=== PATIENT | female | born 1990 | race Caucasian/White ===

== ENCOUNTER 2017-05-05 08:18 | Emergency (ER) | payer SELFPAY ==
[2017-05-05 08:19] VITALS: BP 131/84; PULSE 94; RESP 17; TEMP 97.9; O2SAT 100
[2017-05-05] MEDS ORDERED: IBUPROFEN 800 MG TAB PO ONE (08:45)
[2017-05-05] MEDS ORDERED: IBUP800T23 PO (08:47)
[2017-05-05] MEDS ORDERED: ROBA500T PO (08:48)
--- NOTE | 2017-05-05 08:48 | PD ---
HPI Chief Complaint: Injury Time Seen by Provider: 08:43 Travel History International Travel<30 days: No Contact w/Intl Traveler<30days: No Traveled to known affect area: No History of Present Illness HPI 27-year-old female presents to the emergency Department with complaint of right lower frontal rib cage pain since April 30 after falling onto the sand. Change to tire and lifted a heavy box yesterday with re-exacerbation of the pain. Denies hemoptysis, fever, vomiting. Pain is worse with movement, deep breathing and palpation. Has been taking ibuprofen for symptom management. Allergies to sulfa. Has no other medical complaints. No other modifying factors or associated signs and symptoms. PFSH Past Medical History Cancer: No Cardiovascular Problems: No Diabetes: No Diminished Hearing: No Endocrine: No Genitourinary: No Hepatitis: No Hiatal Hernia: No Immune Disorder: No Musculoskeletal: No Neurologic: No Psychiatric: No Reproductive: No Respiratory: No Thyroid Disease: No ?: Not : 3 Miscarriage: 1 : 2 Dilation and Curettage (D&C): Yes (04/16/14) Past Surgical History Abdominal Surgery: No AICD: No Body Medical Devices: hardware right index finger Cardiac Surgery: No Ear Surgery: No Endocrine Surgery: No Eye Surgery: No Genitourinary Surgery: No Gynecologic Surgery: Yes (D & C ) Joint Replacement: No Oral Surgery: Yes (WISDOM TEETH EXTRACTED) Pacemaker: No Thoracic Surgery: No Other Surgery: Yes (WISDOM TEETH REMOVAL) Social History Alcohol Use: Yes (SOCIALLY) Tobacco Use: Yes (OCCASIONALLY) Substance Use: Yes (MARIJUANA OCCASIONALLY) Allergies-Medications (Allergen,Severity, Reaction): Coded Allergies: Sulfa (Verified Allergy, Severe, 03/15/15) rash Reported Meds & Prescriptions Reported Meds & Active Scripts Active Robaxin (Methocarbamol) 500 Mg Tab 500 Mg PO QID PRN Ibuprofen 800 Mg Tab 800 Mg PO Q6HR PRN Review of Systems Except as stated in HPI: all other systems reviewed are Neg Physical Exam Narrative GENERAL: Well-nourished, well-developed female patient, in no acute distress SKIN: Warm and dry. HEAD: Atraumatic. Normocephalic. EYES: Pupils equal and round. No scleral icterus. No injection or drainage. ENT: Mucosa pink and moist. NECK: Trachea midline. CHEST: Reproducible tenderness to the right lower frontal rib cage just below the right breast; no crepitance or deformity; without ecchymosis, erythema, edema. No retractions or use of accessory muscles. CARDIOVASCULAR: Regular rate and rhythm. No murmur appreciated. RESPIRATORY: No accessory muscle use. Clear to auscultation. Breath sounds equal bilaterally. No retractions or tachypnea. GASTROINTESTINAL: Abdomen soft, non-tender, nondistended. Hepatic and splenic margins not palpable. Bowel sounds are active 4 quadrants. MUSCULOSKELETAL: No obvious deformities. No clubbing. No cyanosis. No edema. NEUROLOGICAL: Awake and alert. Oriented 3. No obvious cranial nerve deficits. Motor grossly within normal limits. Normal speech. Moves all extremities. 5/5 strength to all extremities. PSYCHIATRIC: Appropriate mood and affect; insight and judgment normal. Data Data Last Documented VS Vital Signs Date Time Temp Pulse Resp B/P Pulse Ox O2 Delivery O2 Flow Rate FiO2 05/05/17 08:19 97.9 94 17 131/84 100 Orders Chest, Single Ap (05/05/17 08:42) Ibuprofen (Motrin) (05/05/17 08:45) Methocarbamol (Robaxin) (05/05/17 09:00) MDM Medical Decision Making Medical Screen Exam Complete: Yes Emergency Medical Condition: Yes Medical Record Reviewed: Yes Differential Diagnosis Rib fracture, rib contusion, muscle strain Narrative Course 27-year-old female with right lower rib injury. Lung sounds are clear and equal throughout. No retractions or tachypnea. Patient is in no acute distress. Chest x-ray, Robaxin, ibuprofen ordered. 0918: Chest x-ray with no acute findings. Ibuprofen and Robaxin prescribed for home. Instructed patient to follow up with primary care provider. Patient verbalizes understanding and agreement with treatment plan. Patient is medically cleared and stable for discharge. Discussed reasons to return to the emergency department. Patient agrees with treatment plan. The patients vital signs are stable and the patient is stable for outpatient follow-up and treatment. Patient discharged home, stable and in no acute distress. Diagnosis Primary Impression: Contusion of rib on right side Qualified Code: S20.211A - Contusion of rib on right side, initial encounter Referrals: Primary Care Physician Patient Instructions: General Instructions, Rib Contusion (ED) Additional Instructions: Ibuprofen or Tylenol as directed and as needed to reduce pain Robaxin as prescribed and as needed to reduce muscle spasms Heating pad and/or ice to affected area to reduce pain Avoid aggravating activities; increase activity as tolerated Follow-up with a primary care provider Return to the emergency department immediately with worsening of symptoms Med/Other Pt SpecificInfo: Prescription(s) given Scripts Methocarbamol (Robaxin)500 Mg [id number] Mg PO QID PRN (MUSCLE SPASM) #30 TAB Ref 0 Prov:Sohpie Bain 05/05/17 Ibuprofen 800 Mg Zcg127 Mg PO Q6HR PRN (PAIN) #30 TAB Ref 0 Prov:Sophie Bain 05/05/17 Disposition: 01 DISCHARGE HOME Condition: Stable Sophie Bain May 05, 2017 08:48
[2017-05-05] MEDS ORDERED: METHOCARBAMOL 500 MG TAB PO ONE (09:00)
--- NOTE | 2017-05-05 09:16 | RADRPT ---
EXAM DATE/TIME: 05/05/2017 08:45 [facility] COMPARISON: No previous studies available for comparison. INDICATIONS : Right anterior rib pain, fell MEDICAL HISTORY : None. SURGICAL HISTORY : None. ENCOUNTER: Initial ACUITY: 4 - 6 days PAIN SCORE: 8/10 LOCATION: Right chest FINDINGS: A single view of the chest demonstrates the lungs to be symmetrically aerated without evidence of mas s, infiltrate or effusion. The cardiomediastinal contours are unremarkable. Osseous structures are intact. CONCLUSION: Normal examination. Adriano Chase MD on May 05, 2017 at 9:14 Board Certified Radiologist. This report was verified electronically.
== END 2017-05-05 09:28 | disposition home or self-care (01) ==
LOC: NEPD 08:18
DX: S20.211A Contusion of right front wall of thorax, initial encounter (principal); Z79.899 Other long term (current) drug therapy; Z88.2 Allergy status to sulfonamides; Z72.0 Tobacco use; X50.0XXA Overexertion from strenuous movement or load, initial encounter
CPT/HCPCS: 71010; 99283

== ENCOUNTER 2017-08-09 11:29 | Emergency (ER) | payer SELFPAY ==
[~2017-08-09] VITALS: Ht 170.2 cm; Wt 60.0 kg
[~2017-08-09 11:29] MED LIST: IBUP800T23 PO; ROBA500T PO
[2017-08-09 11:31] VITALS: BP 115/80; PULSE 107; RESP 17; TEMP 98.4; O2SAT 100
[2017-08-09] MEDS ORDERED: IBUPROFEN 800 MG TAB PO ONE (12:00)
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
[2017-08-09] MEDS ORDERED: IBUP800T23 PO (12:58)
== END 2017-08-09 13:18 | disposition home or self-care (01) ==
LOC: NEPK 11:29
DX: S69.91XA Unspecified injury of right wrist, hand and finger(s), initial encounter (principal); F17.200 Nicotine dependence, unspecified, uncomplicated; X58.XXXA Exposure to other specified factors, initial encounter
CPT/HCPCS: 73130; 99283